=== PATIENT | female | born 1940 | race Caucasian/White ===

== ENCOUNTER 2023-08-02 16:01 | Emergency (ER) | payer MEDICARE, OTHER ==
[~2023-08-02] VITALS: Ht 162.6 cm; Wt 64.5 kg
[2023-08-02 17:14] LABS: BASOPHILS % (AUTO) 0.6 % (0-1); EOSINOPHILS # (AUTO) 0.1 X10'3 (0-0.9); HEMATOCRIT 43.4 % (35.0-45.0); HEMOGLOBIN 14.9 g/dl (12.0-16.0); LYMPHOCYTES # (AUTO) 1.5 X10'3 (1.1-4.8); LYMPHOCYTES % (AUTO) 26.2 % (21-51); MEAN CORPUSCULAR HEMOGLOBIN 31.1 PG (27.0-31.0); MEAN CORPUSCULAR HGB CONC 34.4 g/dL (33.0-36.5); MEAN CORPUSCULAR VOLUME 90.6 FL (78-98); MEAN PLATELET VOLUME 8.6 FL (7.4-10.4); MONOCYTES # (AUTO) 0.5 X10'3 (0-0.9); MONOCYTES % (AUTO) 9.1 % (2-12); NEUTROPHILS # (AUTO) 3.5 X10'3 (1.8-7.7); NEUTROPHILS % (AUTO) 62.1 % (42-75); PLATELET COUNT 213 X10'3 (140-440); RED CELL DISTRIBUTION WIDTH 13.4 % (11.5-14.5); WHITE BLOOD COUNT 5.6 X10'3 (4.5-11.0)
[2023-08-02 17:23] LABS: ALANINE AMINOTRANSFERASE 17 U/L (12-78); ALBUMIN 3.7 G/DL (3.4-5.0); ALBUMIN/GLOBULIN RATIO 0.9 (1.1-1.5); ALKALINE PHOSPHATASE 90 IU/L (46-116); ANION GAP 5 (8-16); ASPARTATE AMINO TRANSFERASE 13 U/L (10-37); BILIRUBIN,TOTAL 0.8 MG/DL (0.1-1.0); BLOOD UREA NITROGEN 13 MG/DL (7-18); BUN/CREATININE RATIO 15.7 (10.0-20.0); CALCIUM 8.7 MG/DL (8.5-10.1); CHLORIDE 105 MMOL/L (99-107); CREATININE 0.83 MG/DL (0.40-0.90); GLUCOSE 119 MG/DL (70-104); POTASSIUM 3.7 MMOL/L (3.5-5.1); SODIUM 139 MMOL/L (135-145); TOTAL CARBON DIOXIDE 28.8 MMOL/L (24-32); TOTAL PROTEIN 7.6 G/DL (6.4-8.2); eCRCL 46 ML/MIN; eGFR 66 ML/MIN
[2023-08-02 17:31] LABS: PRO BRAIN NATRIURETIC PEPTIDE 55 PG/ML (0-450)
[2023-08-02] MEDS ORDERED: FLUT16SP2 BOTHNARES (17:43)
[2023-08-02] MEDS ORDERED: PRED20TA PO (17:43)
[2023-08-02] MEDS: methylPREDNISolone sod succ 125mg/2ml vial IM ONE (17:56)
[2023-08-02 18:13] VITALS: BP 142/75; PULSE 63; RESP 15; TEMP 98.3; O2SAT 94
== END 2023-08-02 18:20 | disposition home or self-care (01) ==
LOC: ER 16:02
DX: J30.2 Other seasonal allergic rhinitis (principal); T78.49XA Other allergy, initial encounter; T50.995A Adverse effect of other drugs, medicaments and biological substances, initial encounter; Y92.89 Other specified places as the place of occurrence of the external cause
CPT/HCPCS: 36415; 80053; 82948; 83880; 84484; 85025; 96372; 99283; J2930

== ENCOUNTER 2023-10-09 19:47 | Emergency (ER) | payer MEDICARE, OTHER ==
[~2023-10-09] VITALS: Ht 162.6 cm; Wt 65.5 kg
[~2023-10-09 19:47] MED LIST: FLUT16SP2 BOTHNARES
[2023-10-09] MEDS ORDERED: LIDO700A32 TOP (22:34)
[2023-10-09] MEDS ORDERED: HYDR-3965 PO (22:34)
[2023-10-09 22:37] VITALS: BP 133/80; PULSE 80; RESP 16; TEMP 97.8; O2SAT 98
== END 2023-10-09 22:40 | disposition home or self-care (01) ==
LOC: ER 19:48
DX: S01.81XA Laceration without foreign body of other part of head, initial encounter (principal); S80.00XA Contusion of unspecified knee, initial encounter; S80.219A Abrasion, unspecified knee, initial encounter; Z79.51 Long term (current) use of inhaled steroids; Z79.899 Other long term (current) drug therapy; W18.39XA Other fall on same level, initial encounter; Y93.89 Activity, other specified; Y92.89 Other specified places as the place of occurrence of the external cause; Y99.8 Other external cause status
CPT/HCPCS: 12011; 99283

== ENCOUNTER 2024-01-28 15:21 | Emergency (ER) | payer MEDICARE, OTHER ==
[~2024-01-28] VITALS: Ht 162.6 cm; Wt 64.7 kg
[~2024-01-28 15:21] MED LIST changes: +LIDO700A32 TOP
[2024-01-28] MEDS ORDERED: CEPH-585 PO (16:39)
[2024-01-28] MEDS ORDERED: ketorolac trometh 15mg/ml vial 15 MG/ML ML IM ONE (16:55)
[2024-01-28 17:03] VITALS: BP 132/78; PULSE 78; RESP 18; TEMP 98.1; O2SAT 97
== END 2024-01-28 17:05 | disposition home or self-care (01) ==
LOC: ER 15:22
DX: S01.81XA Laceration without foreign body of other part of head, initial encounter (principal); Z79.899 Other long term (current) drug therapy; Z79.51 Long term (current) use of inhaled steroids; W18.39XA Other fall on same level, initial encounter; Y93.89 Activity, other specified; Y92.89 Other specified places as the place of occurrence of the external cause; Y99.8 Other external cause status
CPT/HCPCS: 12011; 99284; Z7610

== ENCOUNTER 2024-02-09 13:42 | Emergency (ER) | payer MEDICARE, OTHER ==
[~2024-02-09] VITALS: Ht 162.6 cm; Wt 65.0 kg
[2024-02-09 14:07] VITALS: BP 124/63; PULSE 71; TEMP 99.9; O2SAT 100
[2024-02-09 14:07] LABS: BASOPHILS % (AUTO) 0.3 % (0-1); EOSINOPHILS % (AUTO) 0.2 % (0-6); HEMATOCRIT 39.9 % (35.0-45.0); HEMOGLOBIN 13.2 g/dl (12.0-16.0); LYMPHOCYTES # (AUTO) 1.7 X10'3 (1.1-4.8); LYMPHOCYTES % (AUTO) 15.2 % (21-51); MEAN CORPUSCULAR HEMOGLOBIN 30.1 PG (27.0-31.0); MEAN CORPUSCULAR HGB CONC 33.1 g/dL (33.0-36.5); MEAN PLATELET VOLUME 7.4 FL (7.4-10.4); MONOCYTES # (AUTO) 0.8 X10'3 (0-0.9); MONOCYTES % (AUTO) 7.1 % (2-12); NEUTROPHILS # (AUTO) 8.7 X10'3 (1.8-7.7); NEUTROPHILS % (AUTO) 77.2 % (42-75); PLATELET COUNT 245 X10'3 (140-440); RED BLOOD COUNT 4.39 X10'6 (4.20-5.60); RED CELL DISTRIBUTION WIDTH 12.9 % (11.5-14.5); WHITE BLOOD COUNT 11.2 X10'3 (4.5-11.0)
[2024-02-09 14:19] LABS: ALANINE AMINOTRANSFERASE 19 U/L (12-78); ALBUMIN 3.3 G/DL (3.4-5.0); ALBUMIN/GLOBULIN RATIO 0.9 (1.1-1.5); ALKALINE PHOSPHATASE 72 IU/L (46-116); ANION GAP 5 (8-16); ASPARTATE AMINO TRANSFERASE 21 U/L (10-37); BILIRUBIN,TOTAL 1.8 MG/DL (0.1-1.0); BLOOD UREA NITROGEN 9 MG/DL (7-18); BUN/CREATININE RATIO 10.5 (10.0-20.0); CALCIUM 8.3 MG/DL (8.5-10.1); CHLORIDE 104 MMOL/L (99-107); CREATININE 0.86 MG/DL (0.40-0.90); GLUCOSE 131 MG/DL (70-104); SODIUM 137 MMOL/L (135-145); TOTAL CARBON DIOXIDE 28.5 MMOL/L (24-32); eCRCL 44 ML/MIN; eGFR 63 ML/MIN
[2024-02-09 14:27] LABS: PRO BRAIN NATRIURETIC PEPTIDE 156 PG/ML (0-450)
[2024-02-09] MEDS ORDERED: CEFU500T66 PO (17:47)
[2024-02-09] MEDS ORDERED: AZIT250T83 PO (17:47)
[2024-02-09] MEDS: azithromycin 250mg tablet PO ONE (18:02)
[2024-02-09] MEDS: cefuroxime axetil 250mg tablet PO ONE (18:03)
[2024-02-09 18:04] VITALS: RESP 16
[2024-02-09] MEDS: ketorolac trometh 15mg/ml vial 15 MG/ML ML IV ONE (18:04)
== END 2024-02-09 18:23 | disposition home or self-care (01) ==
LOC: ER 13:42
DX: J18.9 Pneumonia, unspecified organism (principal); R07.9 Chest pain, unspecified; M54.2 Cervicalgia; Z79.2 Long term (current) use of antibiotics; Z79.52 Long term (current) use of systemic steroids; Z79.899 Other long term (current) drug therapy
CPT/HCPCS: 36415; 71250; 80053; 83880; 84484; 85025; 93005; 96374; 99285; J1885